=== PATIENT | female | born 1960 | race Caucasian/White ===

== ENCOUNTER → 2017-01-25 | Outpatient (CLI) | payer OTHER | END | disposition home or self-care (01) | LOC: CFH 08:47 | PROVIDERS: ATTEND Family Medicine | DX: Z12.31 Encounter for screening mammogram for malignant neoplasm of breast (principal) | CPT/HCPCS: G0202 ==

== ENCOUNTER → 2018-09-22 | Outpatient (CLI) | payer OTHER ==
[2018-09-22 07:45] LABS: BASOPHILS # (AUTO) 0.08 x10^3/uL (0-0.1); BASOPHILS % (AUTO) 1 % (0-1); EOSINOPHILS # (AUTO) 0.05 x10^3/uL (0-0.4); EOSINOPHILS % (AUTO) 1 % (1-7); LYMPHOCYTES % (AUTO) 37 % (22-44); MD NO; MEAN CORPUSCULAR HEMOGLOBIN 29.1 pg (27.0-34.8); MEAN CORPUSCULAR HGB CONC 33.5 g/dL (32.4-35.8); MEAN CORPUSCULAR VOLUME 86.8 fL (80-100); MONOCYTES # (AUTO) 0.49 x10^3/uL (0.2-0.8); MONOCYTES % (AUTO) 4 % (2-9); NEUTROPHILS # (AUTO) 6.78 x10^3/uL (1.8-6.8); NEUTROPHILS % (AUTO) 58 % (42-75); PLATELET COUNT 358 x10^3/uL (130-400); RED BLOOD COUNT 4.67 x10^6/uL (3.82-5.3); RED CELL DISTRIBUTION WIDTH 13.6 % (9.6-15.2)
[2018-09-22 08:04] LABS: ALBUMIN 4.1 g/dL (3.4-5.0); ANION GAP 9 mmol/L (5-15); CALCIUM 9.8 mg/dL (8.5-10.1); CHLORIDE 104 mmol/L (98-107)
[2018-09-22 08:08] LABS: ALANINE AMINOTRANSFERASE 29 U/L (12-78); ALKALINE PHOSPHATASE 72 U/L (45-117); BILIRUBIN,TOTAL 0.5 mg/dL (0.2-1.0); CHOL/HDL RATIO 5.4; CHOLESTEROL, TOTAL 277 mg/dL (140-239); CREATININE 1.07 mg/dL (0.55-1.02); HDL CHOL % 18 % (28-40); HDL CHOLESTEROL (DIRECT) 51 mg/dL (40-60); LDL CHOLESTEROL,CALCULATED 181 mg/dL (54-169); LDL/HDL RATIO 3.5 (0.5-3.0); TOTAL PROTEIN 8.3 g/dL (6.4-8.2); TRIGLYCERIDES 227 mg/dL (50-200); VLDL CHOLESTEROL 45 mg/dL (0-25)
== END | disposition home or self-care (01) ==
LOC: LAB 07:25
PROVIDERS: ATTEND Family Medicine
DX: R59.1 Generalized enlarged lymph nodes (principal); E78.5 Hyperlipidemia, unspecified; R73.9 Hyperglycemia, unspecified; E55.9 Vitamin D deficiency, unspecified
CPT/HCPCS: 36415; 80053; 80061; 82306; 83036; 85025

== ENCOUNTER → 2018-10-04 | Outpatient (CLI) | payer OTHER | END | disposition home or self-care (01) | LOC: CFH 10:54 | PROVIDERS: ATTEND Family Medicine | DX: Z12.31 Encounter for screening mammogram for malignant neoplasm of breast (principal); R59.1 Generalized enlarged lymph nodes; Z80.3 Family history of malignant neoplasm of breast | CPT/HCPCS: 76536; 77063; 77067 ==

== ENCOUNTER 2020-04-03 07:22 | Outpatient (CLI) | payer OTHER | END 2020-04-03 23:59 | disposition home or self-care (01) | LOC: CFH 07:22 | PROVIDERS: ATTEND Family Medicine | DX: Z12.31 Encounter for screening mammogram for malignant neoplasm of breast (principal); J98.4 Other disorders of lung; K76.0 Fatty (change of) liver, not elsewhere classified; E04.1 Nontoxic single thyroid nodule | CPT/HCPCS: 71250; 77063; 77067 ==

== ENCOUNTER → 2020-04-18 | Outpatient (CLI) | payer OTHER | END | disposition home or self-care (01) | LOC: CFH 07:06 | PROVIDERS: ATTEND Family Medicine | DX: E04.1 Nontoxic single thyroid nodule (principal); R59.0 Localized enlarged lymph nodes | CPT/HCPCS: 76536 ==